=== PATIENT | female | born 1955 | race Caucasian/White ===

== ENCOUNTER 2018-04-15 08:14 | Day surgery (SDC) | payer OTHER ==
[~2018-04-15] VITALS: Ht 165.1 cm; Wt 60.8 kg
[2018-04-15 08:50] VITALS: BP 130/69
[2018-04-15 12:58] VITALS: BP 132/72
== END 2018-04-15 12:50 | disposition home or self-care (01) ==
LOC: GI 08:14 → OR 10:30 → GI 10:30
PROVIDERS: Internal Medicine Gastroenterology
PROC: 0DBH8ZZ Excision of Cecum, Via Natural or Artificial Opening Endoscopic (ICD-10-PCS; principal; 2018-04-15 10:30)
DX: Z12.11 Encounter for screening for malignant neoplasm of colon (principal); K57.30 Diverticulosis of large intestine without perforation or abscess without bleeding; D12.0 Benign neoplasm of cecum
CPT/HCPCS: 45378; J1200; J1610; J2250; J2310; J3010; J3490